=== PATIENT | male | born 1950 | race Caucasian/White ===

== ENCOUNTER 2016-11-10 05:25 | Day surgery (SDC) | payer BC ==
[~2016-11-10] VITALS: Ht 177.8 cm; Wt 94.8 kg
[2016-11-10] MEDS ORDERED: CEFAZOLIN SOD 1 GM/ ISO 50 ML PREMIX IV ONE (07:00)
[2016-11-10] MEDS ORDERED: LR 1,000 ML IV SCH (07:44)
[2016-11-10] MEDS ORDERED: HYDROmorphone 1 MG INJ. 1 MG/ML AMPUL IVP PRN (07:45)
[2016-11-10] MEDS ORDERED: HYDROmorphone 2 MG/ML VIAL IVP PRN ×2 (07:45)
[2016-11-10] MEDS ORDERED: MEPERIDINE HCL/PF 25 MG/ML DISP.SYRIN IVP PRN ×2 (07:45)
[2016-11-10] MEDS ORDERED: ONDANSETRON HCL 4 MG/2 ML VIAL IVP PRN (07:45)
[2016-11-10] MEDS ORDERED: POLYMYXIN 500,000/BACIT.10,000 UNITS in NS IRR 1 L IR ONE ×2 (07:47→08:07)
[2016-11-10] MEDS ORDERED: fentaNYL CITRATE/PF 100 MCG/2 ML AMP IVP ONE (08:00)
[2016-11-10] MEDS ORDERED: KETOROLAC TROMETHAMINE 30 MG VIAL IVP ONE (08:00)
[2016-11-10] MEDS ORDERED: MIDAZOLAM HCL 5 MG/ML VIAL (VERSED) IV ONE (08:00)
[2016-11-10] MEDS ORDERED: SEVOFLURANE 15 MIN GAS INH ONE (08:00)
[2016-11-10] MEDS ORDERED: ONDANSETRON HCL 4 MG/2 ML VIAL IVP ONE (08:00)
[2016-11-10] MEDS ORDERED: PROPOFOL 200MG/ 20ML VIAL (DIPRIVAN) IV ONE (08:00)
[2016-11-10] MEDS ORDERED: LR 1,000 ML IV.SOLN IV ONE (08:00)
[2016-11-10] MEDS ORDERED: IBUPROFEN 600 MG TABLET PO ONE (10:00)
[2016-11-10] MEDS ORDERED: IBUPROFEN 600 MG TABLET ONE (10:08)
[2016-11-10] MEDS ORDERED: HYDROcodone/ACETAMIN 10-325 MG TAB ONE (10:30)
[2016-11-10] MEDS ORDERED: HYDROcodone/ACETAMIN 10-325 MG TAB PO ONE (10:30)
[2016-11-10] MEDS ORDERED: D5/0.45 NS 1,000 ML IV SCH (10:57)
[2016-11-10] MEDS ORDERED: HYDROcodone/ACETAMIN 5-325 MG TAB (NORCO/ VICODIN) PO PRN ×2 (11:00)
[2016-11-10 11:27] VITALS: BP_SYST 128
[2016-11-10] MEDS ORDERED: METOCLOPRAMIDE HCL 10 MG/2 ML VIAL IVP SCH (12:00)
== END 2016-11-10 11:20 | disposition home or self-care (01) ==
LOC: SDS 05:25
PROVIDERS: ATTEND Surgery
DX: K40.90 Unilateral inguinal hernia, without obstruction or gangrene, not specified as recurrent (principal); E78.00 Pure hypercholesterolemia, unspecified; Z98.890 Other specified postprocedural states; Z79.899 Other long term (current) drug therapy; F17.210 Nicotine dependence, cigarettes, uncomplicated
CPT/HCPCS: 49505; C1781; J0690; J1885; J2250; J2405; J2704; J3010; J7120